=== PATIENT | female | born 1995 | race Caucasian/White ===

== ENCOUNTER 2024-02-05 09:47 | Emergency (ER) | payer SELFPAY ==
[2024-02-05 09:57] VITALS: BP 147/99
--- NOTE | 2024-02-05 10:47 | ED.GENMED ---
History of Present Illness
General
Chief Complaint: Musculo-Skeletal Complaint
Time Seen by Provider: 02/05/24 10:47
History of Present Illness
History of Present Illness:
HPI: Patient presents with neck stiffness/pain that started 2 days ago. Ebgd-[id number] meds have not helped. She is also tried baclofen which she had since 2021 which has not helped. She denies fever and rash. She has no other symptoms or
concerns however the pain does seem to radiate towards the shoulders and is described as a shocking/burning pain at times
EXAM:
GENERAL: Well appearing in no distress
HEENT: Moist oral mucosa
CARDIOVASCULAR: No murmurs, normal heart rate, regular rhythm, No chest wall tenderness
PULMONARY: No respiratory distress, breath sounds are clear and equal
ABDOMEN: Soft with no peritoneal signs, no tenderness
NECK: There is a trigger point at the left paraspinal musculature at the base
NEUROLOGIC: Excellent strength all extremities, no coordination deficits, she has excellent strength in the upper extremities with no dysfunction at the median, ulnar, or radial nerves
PSYCHIATRIC: Appropriate mental status, normal insight and judgement
EXTREMITIES: Nontender, no edema, moves all extremities equally
SKIN: No rash, no lesions
TIME OF INITIAL ENCOUNTER: 10:50 AM
NUMBER AND COMPLEXITY OF PROBLEMS ADDRESSED AT THE ENCOUNTER
� Chronic conditions affecting care: Anxiety/depression
� Acute Exacerbation and/or Progression of Chronic Illness: This is an acute problem
� Differential Diagnosis includes: Cervical radiculopathy, cervical spasm, cervical strain, highly doubt meningitis given lack of fevers/afebrile here
AMOUNT AND/OR COMPLEXITY OF DATA TO BE REVIEWED AND ANALYZED
� I performed an independent evaluation of and my interpretation is:
EKG:
CT:
X-rays:
Laboratory Studies:
Other:
� Review of other/old records: CBC from 2011 was unremarkable
� Clinical information was obtained by an independent historian: I spoke to significant other at bedside
� Prescriptions/Medications Considered but not given:
� Further testing considered but not performed: No clear indication for MRI at this time as she has excellent upper extremity
RISK OF COMPLICATIONS AND/OR MORBIDITY OR MORTALITY OF PATIENT MANAGEMENT
� Social determinants of health affecting care: Does not have a primary care doctor, does not have insurance
� Discussion with other providers:
� Escalation of care including admission/observation vs risk of discharge considered: The patient has not improved with baclofen and other meds at home. Will give dose of Toradol and start prednisone/gabapentin. Suspect
cervical radiculopathy.
Past History
Past History
ED Past Medical History: None
Social History
Tobacco: Non-smoker
Alcohol: None
Drug: None
Personal: Single
Living: with family
Employment: Employed
Phy Exam
Physical Exam
Physical Exam:
See HPI
Course
Orders/Labs/Results
Orders:
Orders
02/05/24 10:58
Ketorolac [Toradol] 30 mg IM NOW STA
Vital Signs
Initial and Last Documented VS:
Initial Vital Signs
Temp Pulse Resp BP Pulse Ox
98.1 F 96 18 147/99 100
02/05/24 09:57 02/05/24 09:57 02/05/24 09:57 02/05/24 09:57 02/05/24 09:57
Last Documented Vital Signs
Temp Pulse Resp BP Pulse Ox
98.1 F 96 18 147/99 100
02/05/24 09:57 02/05/24 09:57 02/05/24 09:57 02/05/24 09:57 02/05/24 09:57
*Critical Care Note
Total Time (30-74mins, 75-104mins- exclusive of procedures): Not Applicable
ED Attending Note
-
Portions of this chart may have been created with voice recognition software.� Occasional wrong word or��sound alike� substitutions may have occurred due to the inherent limitations of voice recognition software.
Discharge Plan
Departure
Patient Disposition: Home (Routine Discharge)
Date of Disposition: 02/05/24
Time of Disposition: 10:59
Patient with high blood pressure during this ER visit?: Yes
Discharge Problem:
Cervical radiculopathy, acute
Instructions: Active Range of Motion Exercises, Neck and Shoulders, Radiculopathy of the neck and back (including sciatica), BLOOD PRESSURE
Prescriptions:
New
prednisone 50 mg tablet
50 mg PO DAILY Qty: 5 0RF
gabapentin 300 mg capsule
300 mg PO TID PRN (Reason: pain) Qty: 30 0RF
No Action
Pyridium:
1 tab PO TID
Patient Comments:
over the counter strength
nitrofurantoin monohyd/m-cryst 100 MG capsule
100 mg PO BID 5 Days 0RF
Referrals:
NONE,* [Family Provider] -
Activity Restrictions/Additional Instructions:
Your symptoms are likely a combination of muscle pain and nerve pain. For nerve pain I prescribed gabapentin. I also sent a prescription for prednisone to your pharmacy�this helps to decrease inflammation/swelling. You can try [id number]
lidocaine patches. Since baclofen has not been working, I recommend continuing baclofen. I recommend following up with a primary care doctor. Return here if worse.
Interventions
Interventions:
*Risk Screen - Suicide Last Done: 02/05/24 09:57
*General Assessment Last Done: 02/05/24 09:57
*Neglect/Abuse Screening Last Done: 02/05/24 09:57
*ED COVID-19 Vaccine History Last Done: 02/05/24 09:57
Discharge Date and Time
Print Language: PASHTO
[2024-02-05] MEDS: TORADOL 30 MG IM (11:04)
== END 2024-02-05 11:22 | disposition home or self-care (01) ==
LOC: EMR 09:47
PROVIDERS: EMERGENCY PHYSICIAN Emergency Medicine
DX: M54.12 Radiculopathy, cervical region (principal); M43.6 Torticollis; R03.0 Elevated blood-pressure reading, without diagnosis of hypertension; Z88.1 Allergy status to other antibiotic agents
CPT/HCPCS: 99284; 96372

== ENCOUNTER 2025-06-05 06:57 | Emergency (ER) | payer OTHER, SELFPAY ==
[2025-06-05 07:02] VITALS: BP 137/94
--- NOTE | 2025-06-05 08:01 | ED.GENMED ---
History of Present Illness
General
Chief Complaint: Throat Problem
Source: patient
Time Seen by Provider: 06/05/25 07:48
History of Present Illness
History of Present Illness:
29-year-old female presents to the emergency room complaining of throat pain. Patient has been experiencing throat pain for the past 2 weeks. She describes it as severe. It is constant. She has difficulty eating more solid type food due to the
pain. She is able to tolerate her secretions, liquids and soft foods. She has been seen by her primary care doctor and had negative COVID, strep and influenza tests on 2 separate occasions. She was prescribed a course of steroids which did not
seem to help. She was prescribed Percocet which helps for only an hour or 2. Patient states she is only taking half the pill. She also was started on acid suppression medication. She has an appointment with ENT in about 5 days. Patient denies
any diagnosed medical condition. She does not believe she has lost any weight throughout this but has noticed decreased oral intake. She is not able to sleep due to the pain. No fever.
Past History
Past History
ED Past Medical History: None
Social History
Tobacco: Non-smoker
Alcohol: None
Drug: None
Personal: Single
Living: with family
Employment: Employed
Phy Exam
Physical Exam
Physical Exam:
General: Awake, Alert, Oriented X3. No acute distress.
Vitals: unremarkable
Head: Atraumatic
Eyes: Pupils equal, EOMI
Throat: Airway intact, no exudates, no areas of swelling or erythema noted, no ulcerations noted
Neck: Trachea midline, no significant lymphadenopathy, thyroid is normal
Lungs: Clear and equal b/l
Heart: Regular rate, no murmurs
Abd: Soft, Nontender, No pulsatile mass
Neuro: Nonfocal
Skin: Warm, dry, no rash
Extremities: pulses equal b/l, no edema
Course
Orders/Labs/Results
Orders:
Orders
06/05/25 07:[address] [CT Neck With Iv Contrast] Urgent
Comment:
Reason For Exam: severe throat pain, eval for abscess/fb
06/05/25 07:59
Test Result ONCE
06/05/25 08:09
Basic Metabolic Panel Urgent
Complete Blood Count/With Diff Urgent
HCG, Serum Qualitative Screen Urgent
Monotest Urgent
06/05/25 09:32
Ketorolac [Toradol] 15 mg IV NOW STA
Abnormal Lab Results
06/05/25
08:09
Abs Immat Gran (auto) 0.1 H 10^3/uL
(0-0.05)
Absolute Neuts (auto) 7.3 H 10^3/uL
(1.4-6.5)
Absolute Monos (auto) 0.9 H 10^3/uL
(0.1-0.6)
Lymphocytes % 15.3 L %
(20.5-51.1)
06/05/25 08:09
06/05/25 08:09
Vital Signs
Initial and Last Documented VS:
Initial Vital Signs
Temp Pulse Resp BP Pulse Ox
98.5 F 104 16 137/94 98
06/05/25 07:02 06/05/25 07:02 06/05/25 07:02 06/05/25 07:02 06/05/25 07:02
Last Documented Vital Signs
Temp Pulse Resp BP Pulse Ox
98.5 F 84 16 112/68 100
06/05/25 07:02 06/05/25 10:20 06/05/25 10:20 06/05/25 10:20 06/05/25 10:20
MDM/Problems Addressed
Differential Diagnosis Includes:
Unrecognized foreign body, pharyngeal abscess, space-occupying lesion
MDM/Problems Addressed:
Patient's labs are unremarkable. CT of the neck is unremarkable. Unclear what the patient's pain is from but there is no evidence of an unstable process. Patient has an appoint with ENT which we encouraged her to keep.
*Radiology
Radiology exam reviewed: radiology read reviewed
*Pulse Oximetry
SaO2: 98
Oxygen Mode of Delivery: Room air
Patient hypoxic: no
*Critical Care Note
Total Time (30-74mins, 75-104mins- exclusive of procedures): Not Applicable
ED Attending Note
-
Portions of this chart may have been created with voice recognition software.� Occasional wrong word or��sound alike� substitutions may have occurred due to the inherent limitations of voice recognition software.
Discharge Plan
Departure
Patient Disposition: Home (Routine Discharge)
Date of Disposition: 06/05/25
Time of Disposition: 11:16
Patient with high blood pressure during this ER visit?: No
Condition: Good
Discharge Problem:
Throat pain in adult
Instructions: Sore Throat, Adult (DC)
Prescriptions:
No Action
Pyridium:
1 tab PO TID
Patient Comments:
over the counter strength
nitrofurantoin monohyd/m-cryst 100 MG capsule
100 mg PO BID 5 Days 0RF
prednisone 50 mg tablet
50 mg PO DAILY Qty: 5 0RF
gabapentin 300 mg capsule
300 mg PO TID PRN (Reason: pain) Qty: 30 0RF
Referrals:
UNKNOWN - PT DOES,NOT KNOW [Family Provider]
Stand Alone Forms: Return to Work
Activity Restrictions/Additional Instructions:
Follow up as scheduled with ENT
Interventions
Interventions:
*Risk Screen - Suicide Last Done: 06/05/25 07:02
*General Assessment Last Done: 06/05/25 07:02
*Neglect/Abuse Screening Last Done: 06/05/25 07:02
*ED COVID-19 Vaccine History Last Done: 06/05/25 07:02
*ED Influenza Vaccine History Last Done: 06/05/25 07:46
[facility] Fall Risk Assessment Tool Last Done: 06/05/25 07:46
*Nursing Disposition Last Done: 06/05/25 11:22
ED-EENT Assessment Last Done: 06/05/25 08:11
ED- Pulmonary Assessment Last Done: 06/05/25 07:46
Discharge Date and Time
Discharge Date/Time: 06/05/25 11:23
Print Language: ITALIAN
[2025-06-05 08:10] VITALS: BMI 35.5
[2025-06-05 08:20] LABS: Hematocrit 37.6 % (37.0-47.0); Hemoglobin 12.6 g/dL (12.0-16.0); Mean Corp Hgb Conc. 33.5 g/dL (33.0-37.0); Mean Corpuscular Volume 84.1 fL (81.0-99.0); Nucleated Red Blood Cells % 0 %; Platelet Count 260 10^3/uL (130-400); Red Cell Dist. Width 12.6 % (11.5-14.5)
[2025-06-05 08:33] LABS: HCG, Serum Qualitative Screen Negative
[2025-06-05 08:50] LABS: Blood Urea Nitrogen 10 mg/dl (7-17); Calcium 8.8 mg/dl (8.4-10.2); Carbon Dioxide 27 mmol/L (22-30); Chloride 105 mmol/L (98-107); Estimated Creatinine Clearance > 125 ml/min; Glucose 89 mg/dl (70-99); Potassium 4.0 mmol/L (3.5-5.1); Sodium 135 mmol/L (135-145); eGFR > 60.00
[2025-06-05] MEDS: TORADOL 15 MG IV (09:53)
[2025-06-05 10:20] VITALS: BP 112/68
== END 2025-06-05 11:23 | disposition home or self-care (01) ==
LOC: EMR 06:57
PROVIDERS: EMERGENCY PHYSICIAN Emergency Medicine
DX: R07.0 Pain in throat (principal)
CPT/HCPCS: 99284; 96374; 70491; 80048; 84703; 85025; 86308; Q9967